=== PATIENT | female | born 1995 | race Caucasian/White ===

== ENCOUNTER 2021-11-02 13:53 | Emergency (ER) | payer OTHER ==
[~2021-11-02] VITALS: Ht 157.5 cm; Wt 68.0 kg
[2021-11-02] MEDS ORDERED: AUGMENTIN 875-1 EACH PO (16:08)
[2021-11-02 16:18] VITALS: BP 121/70
== END 2021-11-02 16:19 | disposition home or self-care (01) ==
LOC: M.ERS 13:53
DX: S01.551A Open bite of lip, initial encounter (principal); W54.0XXA Bitten by dog, initial encounter; Y93.89 Activity, other specified; Y92.89 Other specified places as the place of occurrence of the external cause; Y99.8 Other external cause status

== ENCOUNTER 2021-11-04 08:31 | Emergency (ER) | payer OTHER ==
[~2021-11-04] VITALS: Ht 157.5 cm; Wt 68.0 kg
[~2021-11-04 08:31] MED LIST: AUGMENTIN 875-1 EACH PO
[2021-11-04] MEDS ORDERED: HYDROCODON-ACE1 EAC7 PO (09:04)
[2021-11-04 09:20] VITALS: BP 103/60
== END 2021-11-04 09:21 | disposition home or self-care (01) ==
LOC: M.ERS 08:31
DX: S01.551D Open bite of lip, subsequent encounter (principal); W54.0XXD Bitten by dog, subsequent encounter